=== PATIENT | male | born 1945 | race Two or more races ===

== ENCOUNTER 2021-08-23 13:44 | Emergency (ER) | payer OTHER ==
[~2021-08-23] VITALS: Ht 172.7 cm; Wt 77.1 kg
[2021-08-23] MEDS ORDERED: AMLODIPINE BESY10 MG PO (14:38)
[2021-08-23] MEDS ORDERED: COZAAR50 MG PO (14:38)
[2021-08-23] MEDS ORDERED: TOPROL XL50 M1 PO (14:39)
[2021-08-23] MEDS ORDERED: ATORVASTATIN CA10 MG PO (14:39)
[2021-08-23] MEDS ORDERED: FARXIGA5 MG PO (14:40)
[2021-08-23] MEDS ORDERED: GLIMEPIRIDE1 M1 PO (14:40)
[2021-08-23] MEDS ORDERED: METFORMIN HCL1000 M3 PO (14:40)
== END 2021-08-23 22:45 | disposition home or self-care (01) ==
LOC: ER 13:44
DX: U07.1 COVID-19 (principal); J40 Bronchitis, not specified as acute or chronic; N39.0 Urinary tract infection, site not specified

== ENCOUNTER 2021-08-27 11:39 | Inpatient (IN) | payer OTHER ==
[~2021-08-27] VITALS: Ht 172.7 cm; Wt 79.4 kg
[~2021-08-27 11:39] MED LIST: AMLODIPINE BESY10 MG PO; ATORVASTATIN CA10 MG PO; COZAAR50 MG PO; FARXIGA5 MG PO; GLIMEPIRIDE1 M1 PO; METFORMIN HCL1000 M3 PO; TOPROL XL50 M1 PO
== END 2021-09-02 15:29 | disposition home or self-care (01) | DRG 177 ==
LOC: ER 11:39 → MEDJ 19:50
PROVIDERS: ADMIT Internal Medicine; ATTEND Internal Medicine
PROC: BW24ZZZ Computerized Tomography (CT Scan) of Chest and Abdomen (ICD-10-PCS; principal; 2021-08-27)
PROC: 4A12X4Z Monitoring of Cardiac Electrical Activity, External Approach (ICD-10-PCS; 2021-08-28)
PROC: XW033E5 Introduction of Remdesivir Anti-infective into Peripheral Vein, Percutaneous Approach, New Technology Group 5 (ICD-10-PCS; 2021-08-29)
DX: U07.1 COVID-19 (principal); J12.82 Pneumonia due to coronavirus disease 2019; N39.0 Urinary tract infection, site not specified; E86.0 Dehydration; E87.8 Other disorders of electrolyte and fluid balance, not elsewhere classified; I10 Essential (primary) hypertension; R09.02 Hypoxemia

== ENCOUNTER 2021-09-06 10:59 | Emergency (ER) | payer OTHER ==
[~2021-09-06] VITALS: Ht 172.7 cm; Wt 73.5 kg
== END 2021-09-06 20:22 | disposition home or self-care (01) ==
LOC: ER 10:59
DX: R35.0 Frequency of micturition (principal); D72.828 Other elevated white blood cell count; Z20.822 Contact with and (suspected) exposure to COVID-19